=== PATIENT | female | born 1970 | race Caucasian/White ===

== ENCOUNTER → 2017-02-23 | Outpatient (CLI) | payer OTHER ==
--- NOTE | 2017-02-23 10:30 | RAD ---
Indication: Constipation for 3 months. Time of exam 10:21 AM No free air is identified. There is a large amount of stool in the right colon suggestive of constipation. The bowel gas pattern is nonobstructed. No pathologic calcifications are seen. Impression: Constipation.
== END | disposition home or self-care (01) ==
LOC: DXRADRC 10:07
PROVIDERS: ATTEND Physician Assistant
DX: K59.00 Constipation, unspecified (principal)
CPT/HCPCS: 74020